=== PATIENT | female | born 2000 | race Caucasian/White ===

== ENCOUNTER 2021-04-22 09:32 | Emergency (ER) | payer BC ==
[~2021-04-22] VITALS: Ht 167.6 cm; Wt 81.8 kg
[2021-04-22] MEDS ORDERED: diphenhydrAMINE 50 MG/ML VIAL IVP ONE (10:00)
[2021-04-22] MEDS ORDERED: methylPREDNISolone SOD SUCC PF 125 MG/2 ML VIAL. IV ONE (10:00)
[2021-04-22] MEDS ORDERED: FAMOTIDINE 20 MG/2 ML VIAL IVP ONE (10:00)
--- NOTE | 2021-04-22 10:19 | PHYS DOC ---
Past History Past Medical History: No Pertinent History (VIANCA NG APRN) Additional Past Surgical Histo: microdiscectomy (VIANCA NG APRN) Smoking: Non-smoker Alcohol Use: None Drug Use: None (VIANCA NG APRN) General Adult EDM: Chief Complaint: ALLERGIC REACTION HPI: HPI: Patient is a 20-year-old female who presents today with possible allergic reaction. Patient states around 9:00 this morning she started noticing her eyes swollen her lip swollen her hands turning red and swelling. Patient states that she had surgery on evening for a microdiscectomy, she said after surgery before being discharged she was given 2 Percocets in the recovery area, she said on Saturday she took 2 doses of Percocet and 1 dose of naproxen throughout the day along with the cyclobenzaprine, she said this morning she woke up around 7 or 730 and took 2 Odbltyxig28/325 and then about 90 minutes later started noticing the swelling in her face and hands. Patient states she has no known drug allergies, mother who was at the bedside states the patient has some seasonal allergies but no food allergies as well. Patient also had this morning a go-go applesauce and she has had this before and not had any problems. Patient denies any shortness of air or chest pain at this time. (VIANCA NG APRN) Review of Systems: Review of Systems: Constitutional: Denies fever or chills Eyes: Eye swelling denies change in visual acuity HENT: Lip swelling denies nasal congestion or sore throat Respiratory: Denies cough or shortness of breath Cardiovascular: Denies chest pain or edema GI: Denies abdominal pain, nausea, vomiting, bloody stools or diarrhea : Denies dysuria Musculoskeletal: Hands and fingers swelling denies back pain or joint pain Integument: Denies rash Neurologic: Denies headache, focal weakness or sensory changes Endocrine: Denies polyuria or polydipsia Lymphatic: Denies swollen glands Psychiatric: Denies depression or anxiety (VIANCA NG APRN) Current Medications: Current Meds: Current Medications Medications (Trade) Dose Ordered Sig/Doris Start Time Stop Time Status Last Admin Dose Admin Diphenhydramine HCl (Benadryl) 50 mg 1X ONCE 04/22/21 10:00 04/22/21 10:06 DC 04/22/21 10:02 50 MG Famotidine (Pepcid Vial) 20 mg 1X ONCE 04/22/21 10:00 04/22/21 10:06 DC 04/22/21 10:02 20 MG Methylprednisolone Sodium Succinate (SOLU-Medrol 125MG VIAL) 125 mg 1X ONCE 04/22/21 10:00 04/22/21 10:06 DC 04/22/21 10:01 125 MG (VIANCA NG APRN) Allergies: Allergies: Allergies Coded Allergies Type Severity Reaction Last Updated Verified No Known Drug Allergies 04/22/21 No (VIANCA NG APRN) Physical Exam: PE: Constitutional: Well developed, well nourished, mild distress, non-toxic appearance. [] HENT: Upper lip swelling noted, normal oropharynx noted no redness no swelling, Eyes: PERRLA, EOMI, orbital swelling noted patient is able to open her eyes and has no visual changes reported Neck: Normal range of motion, no tenderness, supple, no stridor. [] Cardiovascular:Heart rate regular rhythm, no murmur [] Lungs & Thorax: Bilateral breath sounds clear to auscultation [] Abdomen: Bowel sounds normal, soft, no tenderness, no masses, no pulsatile masses. [] Skin: Warm, dry, no erythema, no rash. [] Back: No tenderness, no CVA tenderness. [] Extremities: Bilateral hand swelling noted with redness patient is able to flex and extend fingers without any difficulty cap refills less than 2 seconds radial pulses are 2+ Neurologic: Alert and oriented X 3, normal motor function, normal sensory fu nction, no focal deficits noted. [] Psychologic: Affect normal, judgement normal, mood normal. [] (VIANCA NG APRN) Current Patient Data: Vital Signs: Vital Signs Date Time Temp Pulse Resp B/P (MAP) Pulse Ox O2 Delivery O2 Flow Rate FiO2 04/22/21 11:00 80 18 120/62 (81) 98 Room Air 04/22/21 09:34 98.2 84 18 123/59 (80) 97 Room Air (VIANCA NG APRN) EKG: EKG: [] (VIANCA NG APRN) Radiology/Procedures: Radiology/Procedures: [] (VIANCA NG APRN) Heart Score: C/O Chest Pain: N/A Risk Factors: Risk Factors: DM, Current or recent (<one month) smoker, HTN, HLP, family history of CAD, obesity. Risk Scores: Score 0 - 3: 2.5% MACE over next 6 weeks - Discharge Home Score 4 - 6: 20.3% MACE over next 6 weeks - Admit for Clinical Observation Score 7 - 10: 72.7% MACE over next 6 weeks - Early Invasive Strategies (VIANCA NG APRN) Course & Med Decision Making: Course & Med Decision Making Pertinent Labs and Imaging studies reviewed. (See chart for details) 1130 patient states her symptoms have improved she no longer feels that her lips are swollen and that her throat is less scratchy. Patient is in no acute distress. We did talk about her pain management and the plan to control her pain if not taking the Percocet. I did tell her to make oxycodone and allergy at this time and not the acetaminophen, she is agreeable to that, we did decide that we will give her an injection of Toradol while here in the emergency department to help with her pain relief, she will also be given a prescription for some tramadol to be taken as needed for moderate to severe pain, also a prescription for prednisone and to take [id number] Pepcid and Benadryl. Patient and mother are agreeable to the plan of care, and has given strict return precautions for any concerns they may have. (VIANCA NG APRN) Dragon Disclaimer: Dragon Disclaimer: This electronic medical record was generated, in whole or in part, using a voice recognition dictation system. (VIANCA NG APRN) Attending Co-Sign The patient was seen and interviewed as well as examined at the bedside. The chart was reviewed. The case was discussed. Agree with the plan of care. (FERNANDO BETANCOURT DO) Departure Departure: Impression: Primary Impression: Allergic reaction caused by a drug Qualified Codes: T78.40XA - Allergy, unspecified, initial encounter Disposition: HOME / SELF CARE / HOMELESS Condition: STABLE Referrals: SUJIT ODELL (PCP) Additional Instructions: Stop the Percocet, consider oxycodone and drug allergy at this time Tramadol 100 mg take half a tablet to 1 tablet every 6 hours as needed for moderate to severe pain Naproxen as labeled directed Prednisone daily for 5 days [id number]-[id number] Pepcid 20 mg twice daily for 5 days Ysur-rrn-jvzmyao Benadryl 1 tablet every 6 hours x48 hours and then as needed Follow-up with your surgeon on Saturday to update him on your allergy to the medication. Scripts Tramadol Hcl (TRAMADOL HCL) 50 Mg Tablet 50 MG PO PRN Q6HRS PRN for PAIN, #20 TAB Prov: VIANCA NG [employer]BOL APPLICATION DEVELOPER 04/22/21 Prednisone (PREDNISONE) 20 Mg Tablet 3 TAB PO DAILY for allergies for 5 Days, #15 TAB Prov: VIANCA NG COBOL APPLICATION DEVELOPER 04/22/21 VIANCA NG COBOL APPLICATION DEVELOPER Apr 22, 2021 10:19 FERNANDO BETANCOURT DO Apr 24, 2021 10:53
[2021-04-22 11:00] VITALS: BP 120/62
[2021-04-22] MEDS ORDERED: KETOROLAC 60 MG/2 ML VIAL. IM ONE ×2 (11:42→11:45)
[2021-04-22] MEDS ORDERED: KETOROLAC 30 MG/ML VIAL. IVP ONE (11:45)
[2021-04-22] MEDS ORDERED: TRAM100T10 PO (11:51)
[2021-04-22] MEDS ORDERED: PRED20TA PO (11:51)
[2021-04-22] MEDS ORDERED: TRAM50TA PO (14:38)
== END 2021-04-22 12:09 | disposition home or self-care (01) ==
LOC: ER 09:32
DX: H57.89 Other specified disorders of eye and adnexa (principal); K13.0 Diseases of lips; R22.33 Localized swelling, mass and lump, upper limb, bilateral; T50.995A Adverse effect of other drugs, medicaments and biological substances, initial encounter; Y92.89 Other specified places as the place of occurrence of the external cause
CPT/HCPCS: 96374; 96375; 99284; J1200; J1885; J2930; J3490